=== PATIENT | female | born 1960 | race Two or more races ===

== ENCOUNTER 2019-12-08 11:07 | Outpatient (CLI) | payer MEDICAID ==
[~2019-12-08 11:07] MED LIST: None per pt
[2019-12-08 15:55] LABS: HCT (SEDRATE) 40.6 % (34.6-47.8)
[2019-12-08 15:56] LABS: BASOPHILS # (AUTO) 0.03 x10^3/uL (0-0.1); BASOPHILS % (AUTO) 1 % (0-1); EOSINOPHILS # (AUTO) 0.13 x10^3/uL (0-0.4); EOSINOPHILS % (AUTO) 2 % (1-7); LYMPHOCYTES # (AUTO) 1.87 x10^3/uL (1-3.4); LYMPHOCYTES % (AUTO) 31 % (22-44); MD NO; MEAN CORPUSCULAR HEMOGLOBIN 28.3 pg (27.0-34.8); MEAN CORPUSCULAR HGB CONC 33.3 g/dL (32.4-35.8); MEAN CORPUSCULAR VOLUME 85.1 fL (80-100); MEAN PLATELET VOLUME 9.1 fL (7.4-10.4); MONOCYTES # (AUTO) 0.34 x10^3/uL (0.2-0.8); MONOCYTES % (AUTO) 6 % (2-9); NEUTROPHILS # (AUTO) 3.68 x10^3/uL (1.8-6.8); NEUTROPHILS % (AUTO) 61 % (42-75); PLATELET COUNT 242 x10^3/uL (130-400); RED BLOOD COUNT 4.77 x10^6/uL (3.82-5.3); RED CELL DISTRIBUTION WIDTH 12.8 % (9.6-15.2)
[2019-12-08 15:57] LABS: ALANINE AMINOTRANSFERASE 52 U/L (12-78); ANION GAP 5 mmol/L (5-15); C-REACTIVE PROTEIN, QUANT 0.13 mg/dL (0.02-0.49); CALCIUM 8.2 mg/dL (8.5-10.1); CHLORIDE 113 mmol/L (98-107); CHOLESTEROL, TOTAL 214 mg/dL (140-239); CREATININE 0.61 mg/dL (0.55-1.02); TRIGLYCERIDES 175 mg/dL (50-200); VLDL CHOLESTEROL 35 mg/dL (0-25)
[2019-12-08 16:00] LABS: ALKALINE PHOSPHATASE 63 U/L (45-117); BILIRUBIN,TOTAL 0.4 mg/dL (0.2-1.0); HDL CHOL % 20 % (28-40); HDL CHOLESTEROL (DIRECT) 43 mg/dL (40-60); LDL CHOLESTEROL,CALCULATED 136 mg/dL (54-169); LDL/HDL RATIO 3.2 (0.5-3.0); TOTAL PROTEIN 7.5 g/dL (6.4-8.2)
[2019-12-13 17:18] LABS: ANA SCREEN NEGATIVE (Negative)
== END 2019-12-08 23:59 | disposition home or self-care (01) ==
LOC: CFH 11:07
PROVIDERS: ATTEND Family Medicine
DX: M25.579 Pain in unspecified ankle and joints of unspecified foot (principal); K76.0 Fatty (change of) liver, not elsewhere classified; M81.0 Age-related osteoporosis without current pathological fracture; R73.03 Prediabetes; M79.644 Pain in right finger(s); Z68.32 Body mass index [BMI] 32.0-32.9, adult
CPT/HCPCS: 36415; 80053; 80061; 83036; 85025; 85651; 86038; 86140; 86200; 86430

== ENCOUNTER 2021-01-03 12:20 | Outpatient (CLI) | payer MEDICAID | END 2021-01-03 23:59 | disposition home or self-care (01) | LOC: CFH 12:20 | PROVIDERS: ATTEND Obstetrics & Gynecology | DX: R92.8 Other abnormal and inconclusive findings on diagnostic imaging of breast (principal) | CPT/HCPCS: 76642; 77065 ==